=== PATIENT | male | born 1980 | race African-American/Black ===

== ENCOUNTER 2019-07-18 01:38 | Emergency (ER) | payer SELFPAY ==
[~2019-07-18] VITALS: Ht 177.8 cm; Wt 91.0 kg
[2019-07-18 11:20] VITALS: BP 133/79
== END 2019-07-18 11:50 | disposition home or self-care (01) ==
LOC: ER 01:38
DX: Z00.00 Encounter for general adult medical examination without abnormal findings (principal); Z59.0 Homelessness
CPT/HCPCS: 99283

== ENCOUNTER 2019-07-20 04:41 | Emergency (ER) | payer SELFPAY ==
[~2019-07-20] VITALS: Ht 175.3 cm; Wt 120.0 kg
[2019-07-20 05:57] LABS: EOSINOPHILS % 1.6 % (0.0-5.0); HEMATOCRIT. 38.1 % (42.0-52.0); LYMPHOCYTES % 12.8 % (20.0-50.0); MEAN CORPUSCULAR HEMOGLOBIN 33.6 pg (28.0-32.0); MEAN CORPUSCULAR VOLUME 97.9 fL (80.0-94.0); MEAN PLATELET VOLUME 7.2 fl (7.4-10.4); MONOCYTES % 6.3 % (2.0-8.0); NEUTROPHILS % 78.3 % (40.0-76.0); PLATELET 329 x1000/uL (130-400); RED BLOOD CELL COUNT 3.89 mill/uL (4.7-6.1); RED CELL DISTRIBUTION WIDTH 15.2 % (11.6-14.6)
[2019-07-20 06:01] LABS: CHLORIDE 107 mEq/L (98-107)
[2019-07-20 08:31] VITALS: BP 157/75
== END 2019-07-20 08:55 | disposition home or self-care (01) ==
LOC: ER 04:41
DX: R07.89 Other chest pain (principal); R03.0 Elevated blood-pressure reading, without diagnosis of hypertension; F14.10 Cocaine abuse, uncomplicated; F15.10 Other stimulant abuse, uncomplicated; F17.210 Nicotine dependence, cigarettes, uncomplicated; G40.909 Epilepsy, unspecified, not intractable, without status epilepticus
CPT/HCPCS: 36415; 71045; 83880; 84484; 93005; 99284

== ENCOUNTER 2019-07-24 02:45 | Emergency (ER) | payer SELFPAY ==
[~2019-07-24] VITALS: Ht 182.9 cm; Wt 100.0 kg
[2019-07-24 02:54] VITALS: BP 152/81
== END 2019-07-24 03:13 | disposition left against medical advice (07) ==
LOC: ER 02:56
DX: Z53.21 Procedure and treatment not carried out due to patient leaving prior to being seen by health care provider (principal)

== ENCOUNTER 2019-07-27 03:23 | Emergency (ER) | payer SELFPAY ==
[~2019-07-27] VITALS: Ht 167.6 cm; Wt 100.0 kg
[2019-07-27 03:27] VITALS: BP 140/86
== END 2019-07-27 03:51 | disposition home or self-care (01) ==
LOC: ER 03:23
DX: F10.129 Alcohol abuse with intoxication, unspecified (principal); Y90.9 Presence of alcohol in blood, level not specified; R07.2 Precordial pain; R03.0 Elevated blood-pressure reading, without diagnosis of hypertension; F17.210 Nicotine dependence, cigarettes, uncomplicated; G40.909 Epilepsy, unspecified, not intractable, without status epilepticus; Z86.59 Personal history of other mental and behavioral disorders
CPT/HCPCS: 99283

== ENCOUNTER 2019-07-31 02:34 | Emergency (ER) | payer SELFPAY | END 2019-07-31 02:45 | disposition left against medical advice (07) | LOC: ER 02:34 | DX: R07.9 Chest pain, unspecified (principal); Z53.21 Procedure and treatment not carried out due to patient leaving prior to being seen by health care provider ==

== ENCOUNTER 2019-08-12 02:07 | Emergency (ER) | payer SELFPAY ==
[~2019-08-12] VITALS: Ht 177.8 cm; Wt 88.0 kg
[2019-08-12] MEDS ORDERED: SODIUM CHLORIDE 0.9% 1,000 ML IV ONE (04:04)
[2019-08-12 04:20] LABS: BASOPHILS % 0.8 % (0.0-2.0); EOSINOPHILS % 1.7 % (0.0-5.0); HEMATOCRIT. 42.2 % (42.0-52.0); HEMOGLOBIN. 14.3 g/dL (14.0-18.0); LYMPHOCYTES % 17.7 % (20.0-50.0); MEAN CORPUSCULAR HEMOGLOBIN 33.5 pg (28.0-32.0); MEAN CORPUSCULAR VOLUME 99.2 fL (80.0-94.0); MEAN PLATELET VOLUME 7.5 fl (7.4-10.4); MONOCYTES % 5.3 % (2.0-8.0); NEUTROPHILS % 74.5 % (40.0-76.0); PLATELET 309 x1000/uL (130-400); RED BLOOD CELL COUNT 4.26 mill/uL (4.7-6.1); RED CELL DISTRIBUTION WIDTH 15.3 % (11.6-14.6)
[2019-08-12 04:29] LABS: CHLORIDE 106 mEq/L (98-107)
[2019-08-12 04:34] LABS: ETHANOL BLOOD 66 mg/dL
[2019-08-12 07:30] VITALS: BP 142/81
== END 2019-08-12 07:43 | disposition left against medical advice (07) ==
LOC: ER 02:07
DX: M79.672 Pain in left foot (principal); M79.671 Pain in right foot; F10.10 Alcohol abuse, uncomplicated; Y90.3 Blood alcohol level of 60-79 mg/100 ml; Z59.0 Homelessness
CPT/HCPCS: 36415; 80053; 80320; 85025; 93005; 96360; 99284; J7030; Z7610; G0480

== ENCOUNTER 2019-08-14 01:48 | Emergency (ER) | payer SELFPAY ==
[~2019-08-14] VITALS: Ht 172.7 cm; Wt 82.0 kg
[2019-08-14 01:52] VITALS: BP 138/83
== END 2019-08-14 02:00 | disposition left against medical advice (07) ==
LOC: ER 01:48
DX: Z53.21 Procedure and treatment not carried out due to patient leaving prior to being seen by health care provider (principal)

== ENCOUNTER 2019-08-17 01:51 | Emergency (ER) | payer SELFPAY ==
[~2019-08-17] VITALS: Ht 182.9 cm; Wt 100.0 kg
[2019-08-17 04:36] LABS: BASOPHILS % 0.6 % (0.0-2.0); EOSINOPHILS % 3.4 % (0.0-5.0); HEMATOCRIT. 39.7 % (42.0-52.0); HEMOGLOBIN. 13.4 g/dL (14.0-18.0); LYMPHOCYTES % 25.1 % (20.0-50.0); MEAN CORPUSCULAR HEMOGLOBIN 33.2 pg (28.0-32.0); MEAN CORPUSCULAR VOLUME 98.5 fL (80.0-94.0); MONOCYTES % 9.8 % (2.0-8.0); NEUTROPHILS % 61.1 % (40.0-76.0); PLATELET 307 x1000/uL (130-400); RED BLOOD CELL COUNT 4.03 mill/uL (4.7-6.1); RED CELL DISTRIBUTION WIDTH 14.6 % (11.6-14.6)
[2019-08-17 04:40] LABS: CHLORIDE 103 mEq/L (98-107)
[2019-08-17 09:08] VITALS: BP 125/75
== END 2019-08-17 09:09 | disposition home or self-care (01) ==
LOC: ER 01:51
DX: R07.89 Other chest pain (principal); G40.909 Epilepsy, unspecified, not intractable, without status epilepticus; Z59.0 Homelessness
CPT/HCPCS: 36415; 71045; 83880; 84484; 85379; 93005; 99284

== ENCOUNTER 2019-08-20 02:39 | Emergency (ER) | payer SELFPAY ==
[~2019-08-20] VITALS: Ht 177.8 cm; Wt 77.0 kg
[2019-08-20 08:45] VITALS: BP 127/60
== END 2019-08-20 08:50 | disposition home or self-care (01) ==
LOC: ER 03:06
DX: R07.89 Other chest pain (principal); Z59.0 Homelessness
CPT/HCPCS: 93005; 99283

== ENCOUNTER 2019-08-21 02:26 | Emergency (ER) | payer SELFPAY ==
[~2019-08-21] VITALS: Ht 182.9 cm; Wt 100.0 kg
[2019-08-21 02:41] VITALS: BP 131/70
== END 2019-08-21 03:48 | disposition left against medical advice (07) ==
LOC: ER 02:26 → CANBEDREQ 07:41
DX: R07.89 Other chest pain (principal)
CPT/HCPCS: 93005; 99283

== ENCOUNTER 2019-08-24 03:26 | Emergency (ER) | payer SELFPAY ==
[~2019-08-24] VITALS: Ht 182.9 cm; Wt 82.0 kg
[2019-08-24 03:29] VITALS: BP 100/54
== END 2019-08-24 03:50 | disposition left against medical advice (07) ==
LOC: ER 03:26
DX: R07.9 Chest pain, unspecified (principal); Z53.21 Procedure and treatment not carried out due to patient leaving prior to being seen by health care provider
CPT/HCPCS: 93005

== ENCOUNTER 2019-08-30 04:50 | Emergency (ER) | payer SELFPAY ==
[~2019-08-30] VITALS: Ht 177.8 cm; Wt 95.0 kg
[2019-08-30 07:10] VITALS: BP 128/72
== END 2019-08-30 07:10 | disposition home or self-care (01) ==
LOC: ER 05:03
DX: R07.89 Other chest pain (principal); M79.604 Pain in right leg; F10.20 Alcohol dependence, uncomplicated; Y90.9 Presence of alcohol in blood, level not specified
CPT/HCPCS: 71045; 93005; 99283; Z7610

== ENCOUNTER 2019-09-07 00:04 | Emergency (ER) | payer SELFPAY ==
[~2019-09-07] VITALS: Ht 182.9 cm; Wt 95.0 kg
[2019-09-07 01:46] LABS: EOSINOPHILS % 3.8 % (0.0-5.0); HEMATOCRIT. 36.5 % (42.0-52.0); HEMOGLOBIN. 12.6 g/dL (14.0-18.0); LYMPHOCYTES % 24.4 % (20.0-50.0); MEAN CORPUSCULAR HEMOGLOBIN 34.1 pg (28.0-32.0); MEAN CORPUSCULAR VOLUME 98.7 fL (80.0-94.0); MEAN PLATELET VOLUME 7.3 fl (7.4-10.4); MONOCYTES % 6.8 % (2.0-8.0); PLATELET 335 x1000/uL (130-400); RED CELL DISTRIBUTION WIDTH 15.7 % (11.6-14.6)
[2019-09-07 01:49] LABS: CHLORIDE 107 mEq/L (98-107)
[2019-09-07 01:53] LABS: ETHANOL BLOOD 53 mg/dL
[2019-09-07 04:55] VITALS: BP 120/80
== END 2019-09-07 05:11 | disposition home or self-care (01) ==
LOC: ER 00:04
DX: F10.229 Alcohol dependence with intoxication, unspecified (principal); Y90.2 Blood alcohol level of 40-59 mg/100 ml; F19.10 Other psychoactive substance abuse, uncomplicated
CPT/HCPCS: 36415; 80053; 80320; 83880; 84484; 85025; 99283; Z7610; G0480

== ENCOUNTER 2019-09-18 01:44 | Emergency (ER) | payer SELFPAY ==
[~2019-09-18] VITALS: Ht 172.7 cm; Wt 91.0 kg
[2019-09-18 05:10] VITALS: BP 117/64
== END 2019-09-18 05:17 | disposition home or self-care (01) ==
LOC: ER 02:02
DX: R07.89 Other chest pain (principal); G40.909 Epilepsy, unspecified, not intractable, without status epilepticus; F10.21 Alcohol dependence, in remission; F17.210 Nicotine dependence, cigarettes, uncomplicated; Z59.0 Homelessness
CPT/HCPCS: 93005; 99283

== ENCOUNTER 2019-09-30 02:50 | Emergency (ER) | payer SELFPAY ==
[~2019-09-30] VITALS: Ht 175.3 cm; Wt 82.0 kg
[2019-09-30 03:27] VITALS: BP 138/81
== END 2019-09-30 04:00 | disposition left against medical advice (07) ==
LOC: ER 02:50
DX: R07.9 Chest pain, unspecified (principal); F12.10 Cannabis abuse, uncomplicated
CPT/HCPCS: 99283

== ENCOUNTER 2019-11-04 02:04 | Emergency (ER) | payer SELFPAY ==
[~2019-11-04] VITALS: Ht 177.8 cm; Wt 102.0 kg
[2019-11-04 02:12] VITALS: BP 156/84
== END 2019-11-04 07:11 | disposition left against medical advice (07) ==
LOC: ER 02:26
DX: M79.669 Pain in unspecified lower leg (principal); Z53.21 Procedure and treatment not carried out due to patient leaving prior to being seen by health care provider

== ENCOUNTER 2019-11-05 01:42 | Emergency (ER) | payer SELFPAY ==
[~2019-11-05] VITALS: Ht 167.6 cm; Wt 72.0 kg
[2019-11-05 01:45] VITALS: BP 141/83
== END 2019-11-05 06:17 | disposition left against medical advice (07) ==
LOC: ER 01:42
DX: G89.29 Other chronic pain (principal); M79.672 Pain in left foot; M79.671 Pain in right foot; F41.9 Anxiety disorder, unspecified; R56.9 Unspecified convulsions; J45.909 Unspecified asthma, uncomplicated; F12.10 Cannabis abuse, uncomplicated; F14.10 Cocaine abuse, uncomplicated
CPT/HCPCS: 99283

== ENCOUNTER 2019-11-15 20:09 | Emergency (ER) | payer SELFPAY ==
[~2019-11-15] VITALS: Ht 177.8 cm; Wt 100.0 kg
[2019-11-15 20:20] VITALS: BP 140/90
== END 2019-11-16 05:14 | disposition left against medical advice (07) ==
LOC: ER 20:37
DX: Z53.21 Procedure and treatment not carried out due to patient leaving prior to being seen by health care provider (principal)

== ENCOUNTER 2019-11-16 22:45 | Emergency (ER) | payer SELFPAY ==
[~2019-11-16] VITALS: Ht 177.8 cm; Wt 87.0 kg
[2019-11-16 22:52] VITALS: BP 146/91
== END 2019-11-17 01:45 | disposition home or self-care (01) ==
LOC: ER 22:45
DX: F10.20 Alcohol dependence, uncomplicated (principal); M79.672 Pain in left foot; M79.671 Pain in right foot; Y90.9 Presence of alcohol in blood, level not specified; F14.10 Cocaine abuse, uncomplicated
CPT/HCPCS: 99283; Z7610

== ENCOUNTER 2019-11-19 03:28 | Emergency (ER) | payer SELFPAY ==
[~2019-11-19] VITALS: Ht 177.8 cm; Wt 82.0 kg
[2019-11-19 06:13] LABS: EOSINOPHILS % 0.5 % (0.0-5.0); HEMATOCRIT. 36.2 % (42.0-52.0); HEMOGLOBIN. 12.3 g/dL (14.0-18.0); LYMPHOCYTES % 17.7 % (20.0-50.0); MEAN CORPUSCULAR HEMOGLOBIN 33.6 pg (28.0-32.0); MEAN PLATELET VOLUME 6.8 fl (7.4-10.4); MONOCYTES % 5.3 % (2.0-8.0); NEUTROPHILS % 75.5 % (40.0-76.0); PLATELET 436 x1000/uL (130-400); RED BLOOD CELL COUNT 3.66 mill/uL (4.7-6.1); RED CELL DISTRIBUTION WIDTH 14.7 % (11.6-14.6)
[2019-11-19 06:18] LABS: CHLORIDE 106 mEq/L (98-107)
[2019-11-19 07:03] VITALS: BP 125/74
== END 2019-11-19 07:26 | disposition left against medical advice (07) ==
LOC: ER 03:28
DX: R07.89 Other chest pain (principal); R06.02 Shortness of breath; F14.10 Cocaine abuse, uncomplicated; F10.20 Alcohol dependence, uncomplicated; Y90.9 Presence of alcohol in blood, level not specified
CPT/HCPCS: 36415; 71045; 80053; 83880; 84484; 85025; 93005; 99284

== ENCOUNTER 2020-03-25 18:54 | Emergency (ER) | payer SELFPAY ==
[~2020-03-25] VITALS: Ht 177.8 cm; Wt 77.0 kg
[2020-03-25 19:45] LABS: BASOPHILS % 0.8 % (0.0-2.0); EOSINOPHILS % 0.9 % (0.0-5.0); HEMATOCRIT. 44.8 % (42.0-52.0); HEMOGLOBIN. 15.3 g/dL (14.0-18.0); LYMPHOCYTES % 18.3 % (20.0-50.0); MEAN CORPUSCULAR HEMOGLOBIN 36.2 pg (28.0-32.0); MEAN CORPUSCULAR VOLUME 106.3 fL (80.0-94.0); MEAN PLATELET VOLUME 7.6 fl (7.4-10.4); MONOCYTES % 4.8 % (2.0-8.0); NEUTROPHILS % 75.2 % (40.0-76.0); PLATELET 329 x1000/uL (130-400); RED BLOOD CELL COUNT 4.21 mill/uL (4.7-6.1); RED CELL DISTRIBUTION WIDTH 16.1 % (11.6-14.6)
[2020-03-25 19:47] LABS: CHLORIDE 105 mEq/L (98-107)
[2020-03-25 19:51] LABS: ETHANOL BLOOD 234 mg/dL
[2020-03-25 20:13] LABS: CLARITY URINE CLEAR (CLEAR); COLOR URINE YELLOW (YELLOW); KETONES URINE NEGATIVE (NEGATIVE); LEUKOCYTE ESTERASE URINE NEGATIVE (NEGATIVE); NITRITE URINE NEGATIVE (NEGATIVE); OCCULT BLOOD URINE NEGATIVE (NEGATIVE); PH URINE 5.5 (4.5-8.0); PROTEIN URINE NEGATIVE (NEGATIVE); UROBILINOGEN URINE 0.2 E.U./dL (0.2-1.0)
[2020-03-25 20:41] LABS: *AMPHETAMINES SCREEN URINE PRESUMTIVE POSITIVE (NEGATIVE); *BARBITURATES SCREEN URINE NEGATIVE (NEGATIVE); *BENZODIAZEPINES SCREEN URINE NEGATIVE (NEGATIVE); *COCAINE SCREEN URINE NEGATIVE (NEGATIVE)
[2020-03-25 20:42] LABS: CANNABINOID URINE SCREEN NEGATIVE (NEGATIVE); METHADONE URINE SCREEN NEGATIVE (NEGATIVE); OPIATES URINE SCREEN NEGATIVE (NEGATIVE); PHENCYCLIDINE URINE SCREEN NEGATIVE (NEGATIVE)
[2020-03-26 04:30] VITALS: BP 122/78
== END 2020-03-26 05:11 | disposition home or self-care (01) ==
LOC: ER 18:54
DX: G93.40 Encephalopathy, unspecified (principal); T51.0X1A Toxic effect of ethanol, accidental (unintentional), initial encounter; T43.621A Poisoning by amphetamines, accidental (unintentional), initial encounter; F14.10 Cocaine abuse, uncomplicated; Y92.89 Other specified places as the place of occurrence of the external cause
CPT/HCPCS: 36415; 80053; 80305; 80320; 81003; 82962; 85025; 99285; G0480

== ENCOUNTER 2020-09-29 12:32 | Emergency (ER) | payer OTHER ==
[~2020-09-29] VITALS: Ht 182.9 cm; Wt 80.0 kg
[2020-09-29] MEDS ORDERED: NITROGLYCERIN 0.4MG TABLET SL SL PRN (13:30)
[2020-09-29] MEDS ORDERED: ASPIRIN 81MG TABLET PO ONE (13:30)
[2020-09-29 14:42] LABS: BASOPHILS % 0.3 % (0.0-2.0); EOSINOPHILS % 1.4 % (0.0-5.0); HEMATOCRIT. 39.3 % (42.0-52.0); HEMOGLOBIN. 13.4 g/dL (14.0-18.0); LYMPHOCYTES % 15.3 % (20.0-50.0); MEAN CORPUSCULAR HEMOGLOBIN 35.1 pg (28.0-32.0); MEAN PLATELET VOLUME 8.1 fl (7.4-10.4); MONOCYTES % 6.6 % (2.0-8.0); NEUTROPHILS % 76.4 % (40.0-76.0); PLATELET 325 x1000/uL (130-400); RED BLOOD CELL COUNT 3.82 mill/uL (4.7-6.1)
[2020-09-29 14:49] LABS: CHLORIDE 104 mEq/L (98-107)
[2020-09-29 14:53] LABS: ETHANOL BLOOD < 10 mg/dL
[2020-09-29 18:20] VITALS: BP 129/75
== END 2020-09-29 18:25 | disposition home or self-care (01) ==
LOC: ER 12:49
DX: R07.89 Other chest pain (principal); F41.9 Anxiety disorder, unspecified; F17.290 Nicotine dependence, other tobacco product, uncomplicated; F14.10 Cocaine abuse, uncomplicated; F10.229 Alcohol dependence with intoxication, unspecified; Y90.0 Blood alcohol level of less than 20 mg/100 ml
CPT/HCPCS: 36415; 71045; 80053; 80320; 83880; 84484; 85025; 93005; 99285; Z7610; G0480

== ENCOUNTER 2024-05-29 17:07 | Emergency (ER) | payer SELFPAY ==
[~2024-05-29] VITALS: Ht 177.8 cm; Wt 66.0 kg
[2024-05-29 17:16] VITALS: TEMP 98.2; O2SAT 99
[2024-05-29] MEDS ORDERED: IBUP-2029 MT (18:28)
[2024-05-29 18:30] VITALS: BP 153/107; PULSE 68; RESP 18
[2024-05-29] MEDS: HYDROCODONE/ACETAMINOPHEN 10/325MG TABLET PO ONE (18:30)
== END 2024-05-29 19:39 | disposition home or self-care (01) ==
LOC: ER 17:07
DX: M25.572 Pain in left ankle and joints of left foot (principal)
CPT/HCPCS: 73590; 99283; Z7610